=== PATIENT | female | born 1950 | race Caucasian/White ===

== ENCOUNTER 2020-01-23 23:38 | Emergency (ER) | payer OTHER, MEDICAID ==
[~2020-01-23] VITALS: Ht 167.6 cm; Wt 73.9 kg
--- NOTE | 2020-01-23 23:42 | NUR ---
PT AMBULATED TO ER BED # 4 W/ STEADY GAIT.
[2020-01-23 23:47] VITALS: BP 138/82
--- NOTE | 2020-01-23 23:59 | NUR ---
DR. AMAYA AT BEDSIDE FOR MEDICAL EVALUATION.
[2020-01-24] MEDS ORDERED: MORPHINE SULFATE 2 MG/ML SYR IM ONE (00:05)
--- NOTE | 2020-01-24 00:11 | NUR ---
69 Y/O FEMALE C/O CHRONIC BILATERAL KNEE PAIN FLARE UP X 3 DAYS WITH PAIN 02/16; DENIES N/V/D; SKIN IS PINK/WARM/DRY; AAOX4 WITH EVEN AND STEADY GAIT; HR EVEN AND REGULAR; PT DENIES ANY FEVER, CP, SOB, OR COUGH AT THIS TIME; VSS; PATIENT POSITIONED FOR COMFORT; HOB ELEVATED; BEDRAILS UP X2; BED DOWN AND LOCKED PMH: ARTHRITIS/HLD/ASTHMA/DM/HTN/OPEN HEART SURGERY/SMOKES ALLERGY: KEFLEX
[2020-01-24 00:20] VITALS: BP 138/82
== END 2020-01-24 00:21 | disposition home or self-care (01) ==
LOC: MED 23:38
DX: G89.29 Other chronic pain (principal); M25.561 Pain in right knee; M25.562 Pain in left knee; J44.9 Chronic obstructive pulmonary disease, unspecified; E11.9 Type 2 diabetes mellitus without complications; I10 Essential (primary) hypertension; F17.200 Nicotine dependence, unspecified, uncomplicated; Z88.1 Allergy status to other antibiotic agents; Z95.1 Presence of aortocoronary bypass graft
CPT/HCPCS: 96372; 99283; J2270